=== PATIENT | male | born 1985 | race Caucasian/White ===

== ENCOUNTER 2018-02-27 17:51 | Emergency (ER) | payer SELFPAY ==
[2018-02-27 18:14] VITALS: BP 122/82
--- NOTE | 2018-02-27 19:04 | ER Document Report ---
ED General - General Chief Complaint: Abdominal Pain Stated Complaint: ABDOMINAL PAIN Time Seen by Provider: 02/27/18 18:53 Notes: 32-year-old male here with complaints of diffuse abdominal pain but mostly in the epigastrium ongoing for the past 7 days progressively worsening and waxing and waning in nature. It is worse with standing and improved with sitting down. He has had some vomiting 2 days ago but none since then. He has not had a bowel movement in 7 days and feels that this may be the issue. Denies any previous history of constipation. He did have surgery as a child but does not remember anything about the surgery. TRAVEL OUTSIDE OF THE [place] IN LAST 30 DAYS: No - Related Data Allergies/Adverse Reactions: No Known Allergies Allergy (Unverified 02/27/18 17:58) Past Medical History - Social History Smoking Status: Unknown if Ever Smoked Family History: Reviewed & Not Pertinent Review of Systems - Review of Systems Notes: See history of present illness for pertinent positive review of systems; otherwise all review of systems have been reviewed and are negative Physical Exam - Vital signs Vitals: Temp Pulse Resp BP Pulse Ox 97.5 F 77 16 122/82 97 02/27/18 18:13 02/27/18 18:13 02/27/18 18:13 02/27/18 18:13 02/27/18 18:13 - Notes Notes: PHYSICAL EXAMINATION: GENERAL: Well-appearing and in no acute distress. HEAD: Atraumatic, normocephalic. EYES: Pupils equal round and reactive to light, extraocular movements intact, sclera anicteric, conjunctiva are normal. ENT: nares patent, oropharynx clear without exudates. Moist mucous membranes. NECK: Normal range of motion, supple without lymphadenopathy LUNGS: CTAB and equal. No wheezes rales or rhonchi. HEART: Regular rate and rhythm without murmurs ABDOMEN: Soft, no appreciable tenderness. No facial grimacing/wincing upon palpation. No guarding, no rebound. EXTREMITIES: Normal range of motion, no pitting edema. No cyanosis. NEUROLOGICAL: Cranial nerves grossly intact. Normal sensory/motor exams. PSYCH: Normal mood, normal affect. SKIN: Warm, Dry, normal turgor, no rashes or lesions noted Course - Re-evaluation Re-evalutation: 02/27/18 19:03 MEDICAL DECISION MAKING: Concern for constipation versus ileus versus obstruction Discussed diagnostic workup including blood work and imaging however patient declines He does not want to wait several hours for the results to come back I did offer him a prescription for GoLYTELY to see if this would help I encouraged him to return at any time if he changed his mind about diagnostic workup His abdominal exam is unremarkable so I feel discharge home would be appropriate but return precautions given Patient understands and agrees to the plan of care - Vital Signs Vital signs: Temp Pulse Resp BP Pulse Ox 97.5 F 77 16 122/82 97 02/27/18 18:13 02/27/18 18:13 02/27/18 18:13 02/27/18 18:13 02/27/18 18:13 Discharge - Discharge Clinical Impression: Constipation Qualifiers: Constipation type: unspecified constipation type Qualified Code(s): K59.00 - Constipation, unspecified Condition: Good Disposition: HOME, SELF-CARE Additional Instructions: You were seen in the emergency department at [facility]. You declined blood work and imaging studies however if you change your mind please feel free to return and we would be happy to see you again. Drink 1/2 gallon of this medication in the first 24 hours. If you did not achieve desired results, drink the other half gallon over the next 24 hours. Please followup with your primary physician in the next few days for further management/ evaluation. Please return to the emergency department for worsening of symptoms or any symptom that you deem to be concerning or life-threatening. Thank you for allowing us to be part of your care. Prescriptions: Peg 3350/Na Sulf,Bicarb,Cl/KCl [Golytely Solution 4000 ml] 4,000 ml PO DAILY #1 bottle Referrals: LOCALMD,NO [Primary Care Provider] - Follow up as needed
== END 2018-02-27 19:01 | disposition home or self-care (01) ==
LOC: ER 17:51
DX: K59.00 Constipation, unspecified (principal); R10.84 Generalized abdominal pain
CPT/HCPCS: 99283

== ENCOUNTER 2019-03-25 15:11 | Emergency (ER) | payer SELFPAY ==
[2019-03-25] MEDS ORDERED: NALOXONE HCL INJ/PF 0.4 MG/1 ML SDV ONE ×2 (15:22→15:28)
[2019-03-25] MEDS ORDERED: ONDANSETRON HCL INJ/PF 4 MG/2 ML SDV ONE (15:28)
--- NOTE | 2019-03-25 15:32 | RADIOLOGY REPORT (SQ) ---
EXAM DESCRIPTION: CT HEAD WITHOUT COMPLETED DATE/TIME: 03/25/2019 3:22 pm REASON FOR STUDY: stroke alert COMPARISON: None. TECHNIQUE: Axial images acquired through the brain without intravenous contrast. Images reviewed wi th bone, brain and subdural windows. Additional sagittal and coronal reconstructions were generated. Images stored on PACS. All CT scanners at this facility use dose modulation, iterative reconstruction, and/or weight based d osing when appropriate to reduce radiation dose to as low as reasonably achievable (ALARA). [facility]: Dose Right [facility]: CareDose [facility]: Dose Right [facility]: Teradose 4D [facility]: Crowdfynd RADIATION DOSE: CT Rad equipment meets quality standard of care and radiation dose reduction techniq ues were employed. CTDIvol: 53.2 mGy. DLP: 937 mGy-cm. mGy. LIMITATIONS: None. FINDINGS: VENTRICLES: Normal size and contour. CEREBRUM: No masses. No hemorrhage. No midline shift. No evidence for acute infarction. Normal gra y/white matter differentiation. No areas of low density in the white matter. CEREBELLUM: No masses. No hemorrhage. No alteration of density. No evidence for acute infarction. EXTRAAXIAL SPACES: No fluid collections. No masses. ORBITS AND GLOBE: No intra- or extraconal masses. Normal contour of globe without masses. CALVARIUM: No fracture. PARANASAL SINUSES: No fluid or mucosal thickening. SOFT TISSUES: No mass or hematoma. OTHER: No other significant finding. IMPRESSION: No CT evidence of acute stroke or hemorrhage. EVIDENCE OF ACUTE STROKE: NO. Findings reported to the emergency department by [facility] critical findings notification system at the ti me of interpretation. COMMENT: Quality ID # [id number]: Final reports with documentation of one or more dose reduction techniques (e.g., Automated exposure control, adjustment of the mA and/or kV according to patient size, use of iterative reconstruction technique) TECHNICAL DOCUMENTATION: JOB ID: [id number] [employer]- All Rights Reserved Reading location - IP/workstation name: [email or web address]
[2019-03-25 15:39] LABS: INTERNATIONAL RATION (INR) 1.19; PROTHROMBIN TIME 15.1 SEC (11.4-15.4)
[2019-03-25 15:40] LABS: PARTIAL THROMBOPLASTIN TIME 31.4 SEC (23.5-35.8)
--- NOTE | 2019-03-25 15:47 | RADIOLOGY REPORT (SQ) ---
EXAM DESCRIPTION: CHEST SINGLE VIEW COMPLETED DATE/TIME: 03/25/2019 3:39 pm REASON FOR STUDY: stroke alert COMPARISON: None. EXAM PARAMETERS: NUMBER OF VIEWS: One view. TECHNIQUE: Single frontal radiographic view of the chest acquired. RADIATION DOSE: NA LIMITATIONS: None. FINDINGS: LUNGS AND PLEURA: No opacities, masses or pneumothorax. No pleural effusion. MEDIASTINUM AND HILAR STRUCTURES: No masses. Contour normal. HEART AND VASCULAR STRUCTURES: Heart normal in size. Normal vasculature. BONES: No acute findings. HARDWARE: None in the chest. OTHER: No other significant finding. IMPRESSION: NO ACUTE RADIOGRAPHIC FINDING IN THE CHEST. TECHNICAL DOCUMENTATION: JOB ID: [id number] [employer]- All Rights Reserved Reading location - IP/workstation name: [email or web address]
[2019-03-25 15:49] LABS: ABSOLUTE LYMPHOCYTES (AUTO) 0.6 10^3/uL (0.5-4.7); ABSOLUTE MONOCYTES (AUTO) 1.1 10^3/uL (0.1-1.4); ABSOLUTE NEUT (AUTO) 8.3 10^3/uL (1.7-8.2); BASOPHILS % (AUTO) 0.2 % (0-2); EOSINOPHILS % (AUTO) 0.4 % (0-6); HEMATOCRIT 39.8 % (37.9-51.0); HEMOGLOBIN 13.9 g/dL (13.5-17.0); LYMPHOCYTES % (AUTO) 5.8 % (13-45); MEAN CORPUSCULAR HEMOGLOBIN 32.4 pg (27.0-33.4); MEAN CORPUSCULAR HGB CONC 34.9 g/dL (32.0-36.0); MEAN CORPUSCULAR VOLUME 93 fl (80-97); MONOCYTES % (AUTO) 10.7 % (3-13); PLATELET COUNT 244 10^3/uL (150-450); RED BLOOD COUNT 4.28 10^6/uL (4.35-5.55); RED CELL DISTRIBUTION WIDTH 12.9 % (11.5-14.0); SEGMENTED NEUTROPHILS % (AUTO) 82.9 % (42-78); TOTAL CELLS COUNTED % (AUTO) 100 %; WHITE BLOOD COUNT 10.1 10^3/uL (4.0-10.5)
[2019-03-25 15:53] LABS: ALBUMIN 4.7 g/dL (3.5-5.0); ALKALINE PHOSPHATASE 98 U/L (38-126); ANION GAP 14 (5-19); ASPARTATE AMINO TRANSFERASE 72 U/L (17-59); BILIRUBIN,DIRECT 0.5 mg/dL (0.0-0.4); BILIRUBIN,TOTAL 1.4 mg/dL (0.2-1.3); BLOOD UREA NITROGEN 20 mg/dL (7-20); CALCIUM 9.8 mg/dL (8.4-10.2); CARBON DIOXIDE 22 mmol/L (22-30); CHLORIDE 102 mmol/L (98-107); CREATINE KINASE 853 U/L (55-170); GLUCOSE 124 mg/dL (75-110); POTASSIUM 4.2 mmol/L (3.6-5.0); TOTAL PROTEIN 8.3 g/dL (6.3-8.2)
[2019-03-25 16:05] LABS: CREATINE KINASE MB 9.34 ng/mL (<4.55)
[2019-03-25 16:08] LABS: TROPONIN I < 0.012 ng/mL
[2019-03-25] MEDS ORDERED: NORMAL SALINE 1000 ML 1,000 ML IV ONE (16:31)
[2019-03-25 16:35] LABS: APPEARANCE,URINE CLEAR; BILIRUBIN,URINE NEGATIVE (NEGATIVE); COLOR,URINE YELLOW; GLUCOSE, URINE NEGATIVE (NEGATIVE); KETONES,URINE 20 mg/dL (NEGATIVE); LEUKOCYTE ESTERASE,URINE NEGATIVE (NEGATIVE); NITRITE,URINE NEGATIVE (NEGATIVE); PROTEIN,URINE NEGATIVE (NEGATIVE); UROBILINOGEN,URINE NEGATIVE mg/dL (<2.0)
--- NOTE | 2019-03-25 16:36 | ER Document Report ---
ED General - General Chief Complaint: S/S of Possible Stroke Stated Complaint: STROKE SYMPTOMS Time Seen by Provider: 03/25/19 15:19 Notes: 33-year-old male brought in by his sister for possible stroke. Sister states that a proximally 40 minutes prior to arrival she noticed that he was going in and out of consciousness, falling asleep, not able to stand up and walk so she brought him to the emergency department. Patient is not able to provide a lot of information however when he wakes up he does admit to using cocaine and Suboxone just prior to arrival. States he uses Suboxone on a multiple times a week basis but not on a daily basis. Denies any other complaints. TRAVEL OUTSIDE OF THE [place] IN LAST 30 DAYS: No - Related Data Allergies/Adverse Reactions: No Known Allergies Allergy (Unverified 02/27/18 17:58) Past Medical History - General Information source: Patient - Social History Smoking Status: Current Every Day Smoker Frequency of alcohol use: Heavy Drug Abuse: Cocaine, Prescription drugs - Suboxone Family History: Reviewed & Not Pertinent Patient has suicidal ideation: No Patient has homicidal ideation: No Renal/ Medical History: Denies: Hx Peritoneal Dialysis Past Surgical History: Reports: Hx Abdominal Surgery Review of Systems - Review of Systems Constitutional: See HPI - in And out of consciousness per sister. Neurological/Psychological: See HPI -: Yes All other systems reviewed and negative Physical Exam - Vital signs Vitals: Temp Pulse Resp BP Pulse Ox 97.7 F 118 H 20 138/77 H 100 03/25/19 15:13 03/25/19 15:13 03/25/19 15:13 03/25/19 15:13 03/25/19 15:13 Interpretation: Tachycardic - Notes Notes: GENERAL: On arrival patient is drowsy, awakens with verbal and tactile stimula tion, withdraws from painful stimuli but rapidly falls back asleep. Does not appear to be in any pain. HEAD: Normocephalic, atraumatic EYES: Pupils equal, round and reactive to light, extraocular movements intact when awake, when falling asleep disconjugate gaze is present, normalizes as soon as he wakes up. ENT: Oral mucosa moist, tongue midline. NECK: Full range of motion, supple, trachea midline. LUNGS: Clear to auscultation bilaterally, no wheezes, rales or rhonchi, no respiratory distress. HEART: Regular rate and rhythm, no murmurs, gallops, rubs. After administration of Narcan becomes tachycardic. ABDOMEN: Soft, nontender, nondistended, bowel sounds present in all 4 quadrants. EXTREMITIES: Moves all 4 extremities spontaneously, no edema, radial and dorsalis pedis pulses 2/4 bilaterally. No cyanosis. NEUROLOGICAL: Alert and oriented x3, normal speech, no facial droop, equal smile, tongue is midline, biceps and patellar DTRs 2+ bilaterally. SKIN: Warm, Dry, normal turgor, multiple injection cisneros noted to the volar aspect of the bilateral forearms, some track cisneros, no evidence of abscess. Course - Re-evaluation Re-evalutation: 03/25/19 16:34 Stroke alert was called, sent to CAT scan, CAT scan is negative for any acute bleed. Given the history of using Suboxone just prior to arrival patient was g iven 0.4 of Narcan, he became more alert but still fell asleep rapidly so patient was given another 0.4 mg of Narcan, at this time patient is much more awake, uncomfortable, somewhat agitated and having significant nausea, increased rhinorrhea and lacrimation. 03/25/19 16:35 CBC unremarkable, INR slightly prolonged, CMP shows slightly elevated total and direct bilirubin, CK and CK-MB are both elevated consistent with recent injection of cocaine, cardiac enzymes negative, chest x-ray unremarkable, suspect patient's symptoms were all coming from the Suboxone use however we will continue to observe the patient. Readminister Narcan as needed. Patient may end up needing a Narcan drip. 03/25/19 17:11 Urinalysis shows moderate blood, only 1 RBC, this is a little bit of myoglobinuria related to cocaine use, urine drug screen shows cocaine. Patient has been observed for over an hour after the Narcan was administered, still falls asleep easily but awakens easily, has occasional twitches in his sleep. No further vomiting, no more rhinorrhea or hyperlacrimation. Patient has not been hypoxic the whole time he is been here. Discussed with sister that we can either observe him here until the Suboxone is completely out of his system or he can go home as long as someone will stay with him. Sister states that he will observe him at home, states that she will just let him sleep. States she will bring him back for any new or concerning symptoms. Patient will be discharged to home and given referral information for detox and substance abuse facilities. Patient and sister agreeable to this plan. - Vital Signs Vital signs: Temp Pulse Resp BP Pulse Ox 98.2 F 118 H 41 H 124/78 99 03/25/19 15:36 03/25/19 15:13 03/25/19 16:01 03/25/19 16:01 03/25/19 16:01 - Laboratory Result Diagrams: 03/25/19 15:25 03/25/19 15:25 Laboratory results interpreted by me: 03/25/19 03/25/19 03/25/19 15:25 15:25 15:25 RBC 4.28 L Seg Neutrophils % 82.9 H Lymphocytes % 5.8 L Absolute Neutrophils 8.3 H Glucose 124 H POC Glucose Total Bilirubin 1.4 H Direct Bilirubin 0.5 H AST 72 H Creatine Kinase 853 H CK-MB (CK-2) 9.34 H Total Protein 8.3 H Urine Ketones Urine Blood 03/25/19 03/25/19 15:27 16:10 RBC Seg Neutrophils % Lymphocytes % Absolute Neutrophils Glucose POC Glucose 116 H Total Bilirubin Direct Bilirubin AST Creatine Kinase CK-MB (CK-2) Total Protein Urine Ketones 20 H Urine Blood MODERATE H - EKG Interpretation by Me Additional EKG results interpreted by me: 03/25/19 16:36 EKG shows sinus rhythm at a rate of 90, normal axis, normal intervals, no ST segment elevations or depressions, isolated T wave inversions in aVL and V2 per my interpretation. Critical Care Note - Critical Care Note Total time excluding time spent on procedures (mins): 35 Discharge - Discharge Clinical Impression: Opiate abuse, continuous, Cocaine abuse Opioid overdose Qualifiers: Encounter type: initial encounter Injury intent: accidental or unintentional Qualified Code(s): T40.2X1A - Poisoning by other opioids, accidental (unintentional), initial encounter Condition: Stable Disposition: HOME, SELF-CARE Additional Instructions: Today you overdosed on a narcotic medication. You report having used Suboxone and cocaine. Many people believe that if they use cocaine with narcotics they are able to take higher doses of narcotics without dying. This is not true. Please do not use opiates that are not prescribed to you. If you are going to continue to use recreational drugs please make sure that the people your with know you are using them so they can give you the necessary rescue medication such as Narcan in case you stop breathing. Your sister is going to stay with you until you are completely and consistently awake. I have given her discharge instructions that include detox facilities that can help you if you decide you wish to quit using drugs. Your sister has been given a prescription for Narcan which she is to give to you by spraying it up to your nose if you are acting like this again. Prescriptions: Naloxone HCl [Narcan] 4 mg NS ASDIR PRN #1 spray PRN Reason:
[2019-03-25] MEDS ORDERED: ONDANSETRON HCL INJ/PF 4 MG/2 ML SDV IV ONE (16:42)
[2019-03-25] MEDS ORDERED: NALOXONE HCL INJ/PF 0.4 MG/1 ML SDV IV ONE ×3 (16:42→16:56)
[2019-03-25 16:46] LABS: URINE AMPHETAMINES SCREEN NEGATIVE; URINE BARBITURATES SCREEN NEGATIVE; URINE BENZODIAZEPINES SCREEN NEGATIVE; URINE COCAINE SCREEN UNCONFIRMED POSITIVE; URINE MARIJUANA (THC) SCREEN NEGATIVE; URINE METHADONE SCREEN NEGATIVE; URINE PHENCYCLIDINE SCREEN NEGATIVE
[2019-03-25 17:25] VITALS: BP 117/65
--- NOTE | 2019-03-25 17:57 | EKG REPORT ---
SEVERITY:- BORDERLINE ECG - SINUS RHYTHM BORDERLINE T ABNORMALITIES, ANT-LAT LEADS : Confirmed by: Kamran Fan MD 25-Mar-2019 17:56:31
== END 2019-03-25 17:25 | disposition home or self-care (01) ==
LOC: ER 15:11
DX: T40.2X1A Poisoning by other opioids, accidental (unintentional), initial encounter (principal); F14.10 Cocaine abuse, uncomplicated; F17.200 Nicotine dependence, unspecified, uncomplicated; R00.0 Tachycardia, unspecified; R11.0 Nausea; R79.89 Other specified abnormal findings of blood chemistry; J34.89 Other specified disorders of nose and nasal sinuses; R25.3 Fasciculation
CPT/HCPCS: 93005; 99291; 96374; 96375; 36415; 82553; 82962; 82550; 85025; 85610; 85730; 80053; 81001; 84484; 80307; 71045; 70450; 93010; J2310; J2405; J7030

== ENCOUNTER 2019-10-11 03:06 | Emergency (ER) | payer SELFPAY ==
[2019-10-11 04:45] LABS: ABSOLUTE LYMPHOCYTES (AUTO) 0.5 10^3/uL (0.5-4.7); ABSOLUTE MONOCYTES (AUTO) 0.8 10^3/uL (0.1-1.4); ABSOLUTE NEUT (AUTO) 6.7 10^3/uL (1.7-8.2); BASOPHILS % (AUTO) 0.5 % (0-2); EOSINOPHILS % (AUTO) 0.3 % (0-6); HEMATOCRIT 48.1 % (37.9-51.0); HEMOGLOBIN 16.6 g/dL (13.5-17.0); LYMPHOCYTES % (AUTO) 6.6 % (13-45); MEAN CORPUSCULAR HEMOGLOBIN 32.8 pg (27.0-33.4); MEAN CORPUSCULAR HGB CONC 34.4 g/dL (32.0-36.0); MEAN CORPUSCULAR VOLUME 96 fl (80-97); MONOCYTES % (AUTO) 9.9 % (3-13); PLATELET COUNT 319 10^3/uL (150-450); RED BLOOD COUNT 5.04 10^6/uL (4.35-5.55); RED CELL DISTRIBUTION WIDTH 13.3 % (11.5-14.0); SEGMENTED NEUTROPHILS % (AUTO) 82.7 % (42-78); TOTAL CELLS COUNTED % (AUTO) 100 %
[2019-10-11 04:51] LABS: ALBUMIN 4.7 g/dL (3.5-5.0); ALKALINE PHOSPHATASE 90 U/L (38-126); ANION GAP 14 (5-19); ASPARTATE AMINO TRANSFERASE 114 U/L (17-59); BILIRUBIN,DIRECT 0.5 mg/dL (0.0-0.4); BILIRUBIN,TOTAL 0.7 mg/dL (0.2-1.3); BLOOD UREA NITROGEN 19 mg/dL (7-20); CALCIUM 10.1 mg/dL (8.4-10.2); CARBON DIOXIDE 26 mmol/L (22-30); CHLORIDE 100 mmol/L (98-107); CREATINE KINASE 152 U/L (55-170); GLUCOSE 118 mg/dL (75-110); POTASSIUM 4.6 mmol/L (3.6-5.0); TOTAL PROTEIN 8.5 g/dL (6.3-8.2)
--- NOTE | 2019-10-11 05:29 | ER Document Report ---
ED General - General TRAVEL OUTSIDE OF THE [place] IN LAST 30 DAYS: No <MICHELLE TAM - Last Filed: 10/11/19 05:51> <CARLIE BIANCHI - Last Filed: 10/11/19 10:37> <NATE DENNIS - Last Filed: 10/11/19 10:52> - General Chief Complaint: Overdose Stated Complaint: OVERDOSE Time Seen by Provider: 10/11/19 04:40 Primary Care Provider: [facility] [Outside] - Follow up as needed - HPI Notes: 34-year-old male transported here by EMS following an overdose of Percocet. EMS crew reported that the patient was found unresponsive at home by his girlfriend. She administered Narcan intranasal and was not able to feel a pulse so she started CPR for about 2 minutes prior to arrival of EMS. When EMS got there they continued CPR for another 2 minutes and then reported that patient regained a pulse and regained consciousness. They transported him here. Patient reports that he took about 15 Percocet tablets. He denies suicidal intent but is not able to give me a very specific reason as to why he chose to ingest this medication. He indicates that these were tablets that he purchased on the street. Patient admits consuming "4 or 5 beers" earlier tonight. (MICHELLE TAM) - Related Data Allergies/Adverse Reactions: No Known Allergies Allergy (Unverified 02/27/18 17:58) Past Medical History - General Information source: Patient - Social History Smoking Status: Current Every Day Smoker Frequency of alcohol use: Heavy Drug Abuse: Heroin, Prescription drugs, Other Occupation: [employer] Lives with: Family Family History: Reviewed & Not Pertinent Patient has suicidal ideation: No Patient has homicidal ideation: No Renal/ Medical History: Denies: Hx Peritoneal Dialysis Past Surgical History: Reports: Hx Abdominal Surgery <MICHELLE TAM - Last Filed: 10/11/19 05:51> Review of Systems <MICHELLE TAM - Last Filed: 10/11/19 05:51> - Review of Systems Notes: Constitutional: Negative for fever. HENT: Negative for sore throat. Eyes: Negative for visual changes. Cardiovascular: Chest wall is sore from CPR. Respiratory: Negative for shortness of breath. Gastrointestinal: Negative for abdominal pain, vomiting or diarrhea. Genitourinary: Negative for dysuria. Musculoskeletal: Negative for back pain. Skin: Negative for rash. Neurological: Negative for headaches, weakness or numbness. 10 point ROS negative except as marked above and in HPI. (MICHELLE TAM) Physical Exam <MICHELLE TAM - Last Filed: 10/11/19 05:51> - Vital signs Vitals: Resp Pulse Ox 20 95 10/11/19 03:13 10/11/19 03:13 - Notes Notes: GENERAL: Sleeping soundly when I entered the room but easily arousable. Somewhat disheveled appearance with odor of old alcohol and tobacco present. SKIN: Good turgor no rashes. HEAD: Normocephalic atraumatic. EYES: PERRLA. EOMI. Conjunctivae and sclerae clear. EARS: CANALS AND TMS CLEAR. NOSE: CLEAR. MOUTH: Moist mucosa. Good dentition. No stridor or edema. No drooling. NECK: Supple. No masses or thyromegaly. No adenopathy. Carotids 2+ without bruits. No JVD. BACK: Symmetrical without tenderness. CHEST: Respirations unlabored. Breath sounds clear and symmetrical. HEART: Regular rhythm. No murmur gallop or rub. ABDOMEN: Soft nontender without masses, organomegaly or rebound. Bowel sounds normally active. No bruits. GENITALIA: Deferred. EXTREMITIES: No edema. No calf tenderness. Cap refill less than 1.5 seconds. Dorsalis pedis and posterior tibial pulses 3+ and symmetrical. NEUROLOGICAL: GCS 14 with subtraction of 1.4 eyes initially closed. Oriented x3. Minimally slurred speech. Cranial nerves II through XII intact. Moves all 4 extremities symmetrically. Sensation grossly intact. Normal tone. PSYCHIATRIC: Appropriate affect. (MICHELLE TAM) Course - Laboratory Result Diagrams: 10/11/19 03:16 10/11/19 03:16 <MICHELLE TAM - Last Filed: 10/11/19 05:51> - Laboratory Result Diagrams: 10/11/19 03:16 10/11/19 03:16 <CARLIE BIANCHI - Last Filed: 10/11/19 10:37> - Laboratory Result Diagrams: 10/11/19 03:16 10/11/19 03:16 <NATE DENNIS - Last Filed: 10/11/19 10:52> - Re-evaluation Re-evalutation: 10/11/19 05:51 Further disposition of this patient is turned over to Dr. Loyd at 0600 hrs. (MICHELLE TAM) 10/11/19 10:49 MDM Pt recevied from Dr. Carl in turnover. Presumed accidental overdose of narcotics. Responded appropriately to Narcan and has no deficit here. He has not urinated and he has been seen by behavioral health here. No need for IVC as he has no SI or HI. He does not want help with drug use and he has been provided with resources for follow up. He will be discharged to follow up and he knows to return here for any problems or any concerns. (NATE DENNIS) - Vital Signs Vital signs: Temp Pulse Resp BP Pulse Ox 97.8 F 10 L 112/80 99 10/11/19 04:01 10/11/19 10:01 10/11/19 10:01 10/11/19 10:01 - Laboratory Laboratory results interpreted by me: 10/11/19 10/11/19 10/11/19 03:16 03:16 03:16 Lymph % (Auto) 6.6 L Seg Neutrophils % 82.7 H Glucose 118 H Direct Bilirubin 0.5 H AST 114 H ALT 114 H Total Protein 8.5 H Salicylates < 1.0 L Acetaminophen < 10 L 10/11/19 06:48 Lymph % (Auto) Seg Neutrophils % Glucose Direct Bilirubin AST ALT Total Protein Salicylates Acetaminophen < 10 L Discharge <MICHELLE TAM - Last Filed: 10/11/19 05:51> <CARLIE BIANCHI - Last Filed: 10/11/19 10:37> <NATE DENNIS - Last Filed: 10/11/19 10:52> - Discharge Clinical Impression: Overdose Qualifiers: Encounter type: subsequent encounter Injury intent: accidental or unintentional Qualified Code(s): T50.901D - Poisoning by unspecified drugs, medicaments and biological substances, accidental (unintentional), subsequent encounter Condition: Stable Disposition: HOME, SELF-CARE Additional Instructions: You have been evaluated by both medical and behavioral health teams for substance abuse/overdose and have been deemed appropriate for discharge. While you were in the Emergency Department you received the following services: medical, psychiatric/psychological, dietary, nursing, vehicle safety inspector and security, environmental in addition to psychoeducation and resources/referrals. You have been provided substance abuse resources to include providers, detox facilities and mobile crisis. NARCOTIC / OPIOD ABUSE: Narcotics and opiods are pain-relieving drugs that are often abused. They are addicting. Narcotics cause euphoria, but it often takes increasing amounts to "feel good" and avoid withdrawal symptoms. Overdose of narcotics causes small pupils, coma, and decreased breathing. It's a common cause of . Purity of street narcotics is unpredictable. Injection of narcotics is risky for abscesses, endocarditis (heart infection), pneumonia, and AIDS. Withdrawal from narcotics causes goose bumps, watery mouth, sweating, nasal congestion, muscle aches, abdominal cramps, vomiting, and diarrhea. There's often restlessness and confusion. Treatment programs are available, but you must make the decision to quit. Medication (such as clonidine) can be prescribed to control the symptoms of withdrawal. OVERDOSE / INGESTION: You have taken more medication than you should have. After your evaluation and care, it is felt that your overdose is not likely to be harmful or of any significant consequences to you and you are being discharged. In the future, y ou should be careful not to take more medications than what is prescribed for you. Although your overdose does not seem to be of any danger to you at this time, if you develop any unusual or unexpected symptoms after your discharge, you should return to the Emergency Department immediately for re-evaluation. INSTRUCTIONS FOR HOME CARE FOLLOWING DRUG OVERDOSAGE: The doctor feels it's safe for you to go home. You will need to be observed. If charcoal and a laxative was given to you, expect some loose black stools soon. Take no medications unless approved by a physician, including alcohol. If drowsy, lie on your stomach or side for sleeping to avoid aspiration if vomiting occurs. Take only liquids by mouth until there is no more nausea. FOR THE OBSERVER: Observe the patient for the next 24 hours and call or go to the hospital if any of the following are noted: prolonged or repeated vomiting, difficulty in arousing, convulsions (seizures or fits), fever, persistent cough, breathing that is too slow or too rapid, or confused or bizarre behavior. If a counselling visit has been arranged, make sure the patient attends. Call the physician or poison control if you have questions. FOLLOW-UP CARE: If you have been referred to a physician for follow-up care, call the physicians office for an appointment as you were instructed or within the next two days. If you experience worsening or a significant change in your symptoms, notify the physician immediately or return to the Emergency Department at any time for re-evaluation. Referrals: [facility] [Outside] - Follow up as needed
[2019-10-11 05:51] LABS: ACETAMINOPHEN < 10 ug/mL (10-30); SALICYLATE < 1.0 mg/dL (2.0-20.0)
[2019-10-11 05:52] LABS: INTERNATIONAL RATION (INR) 1.08
--- NOTE | 2019-10-11 05:57 | RADIOLOGY REPORT (SQ) ---
EXAM DESCRIPTION: XR CHEST 1 VIEW COMPLETED DATE/TME: 10/11/2019 05:26 CLINICAL HISTORY: 34 years, Male, Overdose COMPARISON: 03/25/2019 NUMBER OF VIEWS: One TECHNIQUE: AP view of the chest LIMITATIONS: None. FINDINGS: The lungs are clear. The heart is normal in size. There is no pneumothorax or pleural effusion. The bones are unremarkable. IMPRESSION: No acute cardiopulmonary abnormality copyright 2010 [employer]- All Rights Reserved
[2019-10-11 06:18] LABS: CREATINE KINASE MB 2.37 ng/mL (<4.55); TROPONIN I 0.012 ng/mL
[2019-10-11 10:32] VITALS: BP 112/80
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
--- NOTE | 2019-10-11 19:43 | EKG REPORT ---
SEVERITY:- BORDERLINE ECG - SINUS RHYTHM BORDERLINE PROLONGED QT INTERVAL : Confirmed by: Heidi Sarkar MD 11-Oct-2019 19:42:47
== END 2019-10-11 11:08 | disposition home or self-care (01) ==
LOC: ER 03:06
DX: T50.901A Poisoning by unspecified drugs, medicaments and biological substances, accidental (unintentional), initial encounter (principal); Y92.000 Kitchen of unspecified non-institutional (private) residence as the place of occurrence of the external cause; R09.89 Other specified symptoms and signs involving the circulatory and respiratory systems; F11.10 Opioid abuse, uncomplicated; F17.200 Nicotine dependence, unspecified, uncomplicated
CPT/HCPCS: 36415; 71045; 80053; 80307; 82550; 82553; 84484; 85025; 85610; 93005; 93010; 99285

== ENCOUNTER 2019-10-22 13:11 | Emergency (ER) | payer SELFPAY ==
--- NOTE | 2019-10-22 13:35 | ER Document Report ---
ED General - General Stated Complaint: CHEST PAIN Time Seen by Provider: 10/22/19 13:35 TRAVEL OUTSIDE OF THE [place] IN LAST 30 DAYS: No - HPI Patient complains to provider of: cough Notes: 34-year-old male presents with sharp anterior chest wall pain 8/10 without radiation nothing makes it better or worse been associated with increasing cough and sputum production. Patient denies fever chills. Patient has history of heroin overdose about a week ago received CPR thinks he broke a rib. Denies all other symptoms time. - Related Data Allergies/Adverse Reactions: No Known Allergies Allergy (Unverified 02/27/18 17:58) Past Medical History - Social History Smoking Status: Current Every Day Smoker Family History: Reviewed & Not Pertinent Renal/ Medical History: Denies: Hx Peritoneal Dialysis Past Surgical History: Reports: Hx Abdominal Surgery Review of Systems - Review of Systems Notes: REVIEW OF SYSTEMS: CONSTITUTIONAL: -fevers, -chills EENT: -eye pain, -difficulty swallowing, -nasal congestion CARDIOVASCULAR: positive chest pain RESPIRATORY: cough and SOB GASTROINTESTINAL: -abdominal pain, -nausea, -vomiting, -diarrhea GENITOURINARY: -dysuria, -hematuria MUSCULOSKELETAL: -back pain, -neck pain SKIN: -rash or skin lesions. HEMATOLOGIC: -easy bruising or bleeding. LYMPHATIC: -swollen, enlarged glands. NEUROLOGICAL: -altered mental status or loss of consciousness, -headache, - neurologic symptoms PSYCHIATRIC: -anxiety, -depression. ALL OTHER SYSTEMS REVIEWED AND NEGATIVE. Physical Exam - Vital signs Vitals: BP Pulse Ox 95/79 L 95 10/22/19 13:38 10/22/19 13:38 - Notes Notes: PHYSICAL EXAMINATION: GENERAL: Well-appearing, well-nourished and in no acute distress. HEAD: Atraumatic, normocephalic. EYES: Pupils equal round and reactive to light, extraocular movements intact, sclera anicteric, conjunctiva are normal. ENT: nares patent, oropharynx clear without exudates. Moist mucous membranes. NECK: Normal range of motion, supple without lymphadenopathy LUNGS: Breath sounds clear to auscultation bilaterally and equal. No wheezes rales or rhonchi. HEART: Regular rate and rhythm without murmurs ABDOMEN: Soft, nontender, normoactive bowel sounds. No guarding, no rebound. No masses appreciated. EXTREMITIES: Normal range of motion, no pitting or edema. No cyanosis. NEUROLOGICAL: Cranial nerves grossly intact. Normal speech, normal gait. Normal sensory and motor exams. PSYCH: Normal mood, normal affect. SKIN: Warm, Dry, normal turgor, no rashes or lesions noted. Course - Re-evaluation Re-evalutation: 10/22/19 13:45 Well-appearing young man presents with cough and chest pain concerning for pneumonia and a broken rib. Patient just recently had a heroin overdose and received some CPR. Concerned he broke a rib. 10/22/19 16:07 Patient does not have any broken ribs. Does appear to have a pneumonia. Mild leukocytosis. Patient given oral acetaminophen and IV Toradol. Patient resting comfortably in bed snoring loudly. Patient be discharged home diagnosis pneumonia. Will be started on doxycycline. Encourage patient follow-up PCP return if anything worsens or changes.` - Vital Signs Vital signs: Temp Pulse Resp BP Pulse Ox 98.4 F 136/91 H 96 10/22/19 14:13 10/22/19 14:25 10/22/19 14:25 - Laboratory Result Diagrams: 10/22/19 15:00 10/22/19 15:00 Laboratory results interpreted by me: 10/22/19 10/22/19 15:00 15:00 WBC 12.8 H Seg Neuts % (Manual) 82 H Lymphocytes % (Manual) 5 L Abs Neuts (Manual) 10.5 H Abs Monocytes (Manual) 1.7 H Sodium 134.1 L Glucose 114 H Discharge - Discharge Clinical Impression: Pneumonia Qualifiers: Pneumonia type: due to unspecified organism Laterality: unspecified laterality Lung location: unspecified part of lung Qualified Code(s): J18.9 - Pneumonia, unspecified organism Condition: Stable Disposition: HOME, SELF-CARE Instructions: Pneumonia ([facility]) Prescriptions: Doxycycline Hyclate 100 mg PO BID #20 tablet.
[2019-10-22] MEDS ORDERED: NORMAL SALINE 1000 ML 1,000 ML IV ONE (13:38)
[2019-10-22] MEDS ORDERED: KETOROLAC TROMETHAMINE 60 MG/2 ML SDV IM ONE (13:42)
[2019-10-22] MEDS ORDERED: ACETAMINOPHEN 325 MG TABLET PO ONE (13:43)
[2019-10-22 15:31] LABS: HEMATOCRIT 47.1 % (37.9-51.0); HEMOGLOBIN 16.1 g/dL (13.5-17.0); MEAN CORPUSCULAR HEMOGLOBIN 32.6 pg (27.0-33.4); MEAN CORPUSCULAR HGB CONC 34.2 g/dL (32.0-36.0); MEAN CORPUSCULAR VOLUME 95 fl (80-97); PLATELET COUNT 212 10^3/uL (150-450); RED BLOOD COUNT 4.94 10^6/uL (4.35-5.55); RED CELL DISTRIBUTION WIDTH 12.9 % (11.5-14.0); WHITE BLOOD COUNT 12.8 10^3/uL (4.0-10.5)
--- NOTE | 2019-10-22 15:42 | RADIOLOGY REPORT (SQ) ---
EXAM DESCRIPTION: CHEST 2 VIEWS COMPLETED DATE/TIME: 10/22/2019 3:14 pm REASON FOR STUDY: sob COMPARISON: 10/11/2019 EXAM PARAMETERS: NUMBER OF VIEWS: two views TECHNIQUE: Digital Frontal and Lateral radiographic views of the chest acquired. RADIATION DOSE: NA LIMITATIONS: none FINDINGS: LUNGS AND PLEURA: No opacities, masses or pneumothorax. No pleural effusion. MEDIASTINUM AND HILAR STRUCTURES: No masses or contour abnormalities. HEART AND VASCULAR STRUCTURES: Heart normal size. No evidence for failure. BONES: No acute findings. HARDWARE: None in the chest. OTHER: No other significant finding. IMPRESSION: NO ACUTE RADIOGRAPHIC FINDING IN THE CHEST. TECHNICAL DOCUMENTATION: JOB ID: [id number] 2010 [employer]- All Rights Reserved Reading location - IP/workstation name: [email or web address]
[2019-10-22 15:51] LABS: ABSOLUTE LYMPHOCYTES# (MANUAL) 0.6 10^3/uL (0.5-4.7); ABSOLUTE MONOCYTES # (MANUAL) 1.7 10^3/uL (0.1-1.4); BASOPHILS % (MANUAL) 0 % (0-2); EOSINOPHILS % (MANUAL) 0 % (0-6); LYMPHOCYTES % (MANUAL) 5 % (13-45); MONOCYTES % (MANUAL) 13 % (3-13); SEGMENTED NEUTROPHILS % (MAN) 82 % (42-78); TOTAL CELLS COUNTED 100
[2019-10-22 15:52] LABS: PLATELET CLUMPS PRESENT; PLATELET COMMENT ADEQUATE; RBC MORPHOLOGY COMMENT NORMO-CYTIC/CHROMIC; TOXIC GRANULATION SLIGHT
[2019-10-22 15:59] LABS: ANION GAP 10 (5-19); BLOOD UREA NITROGEN 20 mg/dL (7-20); CALCIUM 9.1 mg/dL (8.4-10.2); CARBON DIOXIDE 23 mmol/L (22-30); CHLORIDE 101 mmol/L (98-107); GLUCOSE 114 mg/dL (75-110); POTASSIUM 4.4 mmol/L (3.6-5.0)
[2019-10-22 16:50] VITALS: BP 135/99
== END 2019-10-22 16:50 | disposition home or self-care (01) ==
LOC: ER 13:11
DX: J18.9 Pneumonia, unspecified organism (principal); R05 Cough; R07.9 Chest pain, unspecified; F17.200 Nicotine dependence, unspecified, uncomplicated
CPT/HCPCS: 99284; 96372; 96360; 36415; 87040; 83605; 85025; 80048; 71046; J1885; J7030